=== PATIENT | male | born 1950 | race Two or more races ===

== ENCOUNTER 2020-12-11 06:17 | Day surgery (SDC) | payer OTHER ==
[~2020-12-11 06:17] MED LIST: CRESTOR40 MG PO
== END 2020-12-11 14:50 | disposition home or self-care (01) ==
LOC: CIR.AMB 06:17
PROVIDERS: ATTEND Orthopaedic Surgery
DX: M75.122 Complete rotator cuff tear or rupture of left shoulder, not specified as traumatic (principal); M75.22 Bicipital tendinitis, left shoulder; Z51.89 Encounter for other specified aftercare